=== PATIENT | female | born 1965 | race Caucasian/White ===

== ENCOUNTER 2019-07-31 14:42 | Emergency (ER) | payer BC ==
[~2019-07-31] VITALS: Ht 160 cm; Wt 72.6 kg
[2019-07-31 14:51] VITALS: Ht 160 cm; Wt 72.6 kg
[2019-07-31 15:26] LABS: BASOPHIL % 0.5 % (0-2); PLATELET COUNT 324 x10^3mcL (130-400); RED CELL DISTRIBUTION WIDTH 13.6 % (11.5-14.5)
[2019-07-31 15:40] LABS: CALCIUM 9.1 mg/dL (8.5-10.1); CARBON DIOXIDE 26.7 mmol/L (21-32); CHLORIDE SERUM 102 mmol/L (98-107); CREATININE SERUM 0.8 mg/dL (0.6-1.0); GFR1 > 60 mL/min; GLUCOSE SERUM 98 mg/dL (74-106); POTASSIUM SERUM 4.1 mmol/L (3.5-5.1); SODIUM SERUM 139 mmol/L (136-145)
[2019-07-31 15:44] LABS: ALBUMIN 3.9 g/dL (3.4-5.0); ALKALINE PHOSPHATASE 75 U/L (46-116); ALT/SGPT 33 U/L (14-59); AST/SGOT 27 U/L (15-37); BILIRUBIN TOTAL 0.33 mg/dL (0.20-1.00); TOTAL PROTEIN, SERUM 7.6 g/dL (6.4-8.2)
[2019-07-31 17:13] LABS: microscopic required? NO
[2019-07-31 17:32] LABS: UA SPECIFIC GRAVITY 1.015 (1.005-1.035); urine erythrocyte NEGATIVE (NEGATIVE)
[2019-07-31 17:42] LABS: AMPHETAMINE QUAL UR NONE DETECTED (See below)
[2019-07-31 23:27] VITALS: BP 94/65
== END 2019-07-31 23:10 ==
LOC: ED 14:42
PROVIDERS: Emergency Medicine
DX: F30.9 Manic episode, unspecified (principal)
CPT/HCPCS: 36415; G0480; J1630; J2060